=== PATIENT | female | born 1990 | race Two or more races ===

== ENCOUNTER 2024-07-28 20:34 | Emergency (ER) | payer OTHER, SELFPAY ==
[2024-07-28 20:35] VITALS: BMI 29.5
[2024-07-28 20:52] VITALS: BP 137/90; PULSE 97; RESP 18; TEMP 36.8; O2SAT 97
--- NOTE | 2024-07-28 21:09 | PD.EDBACK ---
ED Back Injury Pain RME/HPI General Chief Complaint: Back Pain/Injury Stated Complaint: LOWER BACK PAIN S/P GROUND LEVEL FALL Time Seen by Provider: 07/28/24 20:59 Arrival date/time: 07/28/24 20:34 34F with no significant PMH presents to ED with lower back pain after slip and fall in snow. Patient does not feel like it is broken. Patient denies hitting head, bowel/bladder incontinence, and paresthesia. Limitations: no limitations Related Data Allergies Allergy/AdvReac Type Severity Reaction Status Date / Time No Known Allergies Allergy Verified 07/28/24 20:38 Review of Systems Review of Systems Systems Reviewed: All systems reviewed, normal except as documented Constitutional Constitutional: Reports system reviewed and no additional complaints, except as documented, Denies fever(s) and Denies headache(s) ENT Ears, Nose, Mouth, and Throat: Denies disequilibrium and Denies headache(s) Cardiovascular Cardiovascular: Reports system reviewed and no additional complaints, except as documented, Denies chest pain and Denies dyspnea Respiratory Respiratory: Reports system reviewed and no additional complaints, except as documented, Denies cough and Denies dyspnea Gastrointestinal Gastrointestinal: Reports system reviewed and no additional complaints, except as documented, Denies abdominal pain, Denies nausea and Denies vomiting Musculoskeletal Musculoskeletal: Reports as per HPI and Reports back pain Neurologic Neurologic: Reports system reviewed and no additional complaints, except as documented, Denies confusion, Denies disequilibrium and Denies headache(s) Psychiatric Psychiatric: Denies confusion Past Medical History Past Medical History CARDIAC: Negative Congestive Heart Failure RESPIRATORY: Negative Chronic Obstructive Pulmonary Disease (COPD) GENITOURINARY: Negative Renal Disease ENDOCRINE: Negative Diabetes Mellitus Type 1 or Diabetes Mellitus Type 2 Social History SMOKING STATUS: Never smoker ED Exam General Limitations: Present no limitations General appearance: Present alert and in no apparent distress Head Head exam: Present atraumatic Eye Eye exam: Present normal appearance, PERRL and EOMI ENT ENT exam: Present normal exam, normal oropharynx and mucous membranes moist Neck Neck exam: Present normal inspection, full ROM and trachea midline Chest Chest inspection: Present normal inspection and symmetric chest wall rise Respiratory Respiratory exam: Present normal lung sounds bilaterally Cardiovascular Cardiovascular exam: Present regular rate, normal rhythm and normal heart sounds Abdominal Exam Abdominal exam: Present soft and normal bowel sounds Extremities Exam Extremities exam: Present normal inspection and full ROM Back Exam Back exam: Present full ROM and tenderness (mild) Neurological Exam Neurological exam: Present alert, oriented X3 and CN II-XII intact Psychiatric Psychiatric exam: Present normal affect and normal mood Skin Skin exam: Present warm, dry, intact and normal color Course Quality Measures none Orders Category Date Time Status Ketorolac Inj [Toradol Inj] Med 07/28/24 20:59 Discontinued 60 mg IM X1 ONE Vital Signs Vital signs: Vital Signs Temperature 98.2 F 07/28/24 20:52 Pulse Rate 97 07/28/24 20:52 Respiratory Rate 18 07/28/24 20:52 Blood Pressure 137/90 H 07/28/24 20:52 Pulse Oximetry (%) 97 07/28/24 20:52 Oxygen Delivery Method Room Air 07/28/24 20:52 O2 at 97% on RA and WNLs Back Pain / Injury MDM Narrative MDM Narrative:: 34F with no significant PMH presents to ED with lower back pain after slip and fall in snow. Patient does not feel like it is broken. Patient denies hitting head, bowel/bladder incontinence, and paresthesia. Physical exam reveals mild lower back tenderness. ROM intact. Gait normal. Patient is afebrile, calm, and alert. Meds and financial health counselor given. Likely contusion Patient data External records reviewed:: None Clinical information provided by:: patient Social determinants that could affect healthcare access:: none Patient has the following chronic illnesses:: none How is presenting disease/condition affected by chronic disease/condition?: no chronic disease Evaluation data The following diagnostics were reviewed and interpreted by me:: other (specify) (none) Lab and/or radiology exams considered but not ordered:: not ordered Interpretation Summary: n/a Medications / Prescriptions Medications or Prescriptions considered but not ordered:: ordered Medication administrations:: Medication Administration History Discontinued Medications Ketorolac Tromethamine (Ketorolac Inj 60 Mg/2 Ml Vial) 60 mg IM X1 ONE Stop: 07/28/24 21:00 Last Admin: 07/28/24 21:14 Dose: 60 mg Documented By: above Consultations Consultation(s) initiated? (list below): No Diagnosis Differential diagnosis back pain/injury: lumbar radiculopathy, sciatica, strain of lumbar region, renal colic, pyelonephritis, thoracic back pain, AAA, discitis and other (back fracture/contusion) Most likely diagnosis given after review of the tests above:: back contusion Admission Indicated Admission indicated?: not indicated Admission Request Was there a request for admission?: No Disposition Plan Disposition Plan: Discharge Discharge Attestation Discharge Attestation: The patient and all family members were given an opportunity to ask questions and understood the discharge instructions. Discharge instructions specifically effects, indications for sooner follow up or return to the emergency department, and the expected course of current diagnosis. Patient condition: Stable Discharge Plan Plan Patient Disposition: HOME (Self Care) Disposition Comment: Stable Problem List Clinical Impression: Contusion of back Patient/Caregiver Discharge Instructions Education Materials: ED Soft Tissue Contusion Additional Instructions: Please follow-up with PCP within 24-48 hours and return immediately if symptoms worsen. If problem persists, recommend outpatient PT and/or MRI follow-up. In the meantime, rest, use ice/heat, and/or compression. Print Language: Kinyarwanda Stand Alone Forms: Patient Portal Info Letter BENNIE/ZAINAB Supervising Physician BENNIE/ZAINAB Supervising Physician:
[2024-07-28] MEDS: KETOROLAC INJ 60 MG/2 ML VIAL IM (21:14)
== END 2024-07-28 21:19 | disposition home or self-care (01) ==
LOC: SERX 21:10
PROVIDERS: Emergency Provider Emergency Medicine
DX: S30.0XXA Contusion of lower back and pelvis, initial encounter (principal); W01.0XXA Fall on same level from slipping, tripping and stumbling without subsequent striking against object, initial encounter
CPT/HCPCS: 96372; 99283; J1885